=== PATIENT | male | born 1950 | race Caucasian/White ===

== ENCOUNTER 2017-08-16 17:41 | Inpatient (IN) ==
[2017-08-16] MEDS: *HR* HYDROcodone/Acet 5/325 mg TABLET PO PRN (20:37)
[2017-08-16] MEDS: amLODIPine 5 MG TABLET PO SCH (22:45)
[2017-08-17 06:13] LABS: Basophils # 0.1 K/mcL (0.0-0.2); Basophils % 0.4 %; Eosinophils # 0.3 K/mcL (0.0-0.6); Hematocrit 33.7 % (37.5-50.1); Hemoglobin 11.6 g/dL (12.9-16.9); Immature Granulocytes % 0.7 % (0-4); Lymphocytes # 1.4 K/mcL (0.6-4.6); Lymphocytes % 9.5 %; Mean Corpuscular HGB Conc 34.4 g/dL (31.6-35.5); Mean Corpuscular Hemoglobin 34.1 pg (28.0-33.3); Mean Corpuscular Volume 99.1 fL (83.0-100.0); Mean Platelet Volume 9.5 fL (9.4-12.4); Monocytes % 6.9 %; Neutrophils # 12.1 K/mcL (1.6-8.9); Platelet Count 319 K/mcL (140-400); Red Cell Distribution Width 13.5 % (11.5-14.5); Segmented Neutrophils % 80.5 %
[2017-08-17 06:27] LABS: INR 1.5; Prothrombin Time 16.7 Seconds (9.4-12.1)
[2017-08-17 06:29] LABS: Activated Partial Thrombo Time 44.1 Seconds (26.0-36.0)
[2017-08-17 06:40] LABS: BUN/Creatinine Ratio 11 (6-26); Blood Urea Nitrogen 14 mg/dL (8-23); Calcium 9.5 mg/dL (8.6-10.3); Carbon Dioxide 33 mEq/L (23-29); Chloride 104 mEq/L (98-107); Glucose 99 mg/dL (70-105); Osmolality,Calculated 301 (280-300); Potassium 3.4 mEq/L (3.5-5.1); Sodium 145 mEq/L (136-145); eGFR For African Americans > 60 (> 60); eGFR For Non-African Americans 57 (> 60)
[2017-08-17] MEDS ORDERED: Loratadine 10 MG TABLET PO SCH (09:00)
[2017-08-17] MEDS: Nicotine 21 MG PATCH.TD24 TD SCH (09:15)
[2017-08-17] MEDS: Aspirin 81 MG TAB.CHEW PO SCH (09:22)
[2017-08-17] MEDS: *HR* HYDROcodone/Acet 5/325 mg TABLET PO PRN ×2 (09:22→17:47)
[2017-08-17] MEDS: Cholecalciferol (D-3) 1,000 UNIT TABLET PO SCH (09:23)
--- NOTE | 2017-08-17 15:15 | Internal Med History&Physical ---
Date of Encounter: 08/17/17 Time of Encounter: 14:40 Assessment and Plan (1) Hx of ischemic multifocal multiple vascular territories stroke Current visit: Yes Status: Acute Continue Coumadin and aspirin. (2) CKD (chronic kidney disease) stage 3, GFR 30-59 ml/min Current visit: Yes Status: Chronic We will monitor renal indices. (3) Hypokalemia Current visit: Yes Status: Acute Will add supplemental potassium. (4) Anemia Current visit: Yes Status: Acute Will order anemia testing in a.m. Qualifiers: Anemia type: unspecified type Qualified Code(s): D64.9 - Anemia, unspecified (5) Neutrophilic leukocytosis Current visit: Yes Status: Acute Chest x-ray 08/12/2017 showed probable pneumonia. Continue Augmentin and monitor. (6) Weakness Current visit: Yes Status: Acute He will have OT and PT evaluations with ongoing intervention. (7) Hyperlipidemia Current visit: Yes Status: Chronic Continue Lipitor Qualifiers: Hyperlipidemia type: unspecified Qualified Code(s): E78.5 - Hyperlipidemia , unspecified Internal Medicine - H&P: HPI Chief complaint: Stroke Admitted From: Hospital to Hospital Transfer Plans for Post Hospital Care: Home History of present illness: Mr. Olivier is a 66 year old male who was transferred to [facility] swing bed for rehabilitation therapy following strokes. He was originally hospitalized at [facility] 07/13/2017 with CVA. 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 He was transferred from [facility] to [facility] inpatient rehabilitation for ongoing therapy needs. He was discharged from [facility] on 07/31/2017 but returned to [facility] on 08/02/2017 after having a choking episode at home with syncope. Available records state he was unconscious approximately 10 minutes and had slurred speech and confusion after regaining consciousness. He was found to have evidence of additional infarcts on brain MRI. He performed poorly on swallowing evaluation and PEG tube was placed 08/10/2017. He was stabilized and discharged to [facility] swing bed 08/16/2017 for ongoing therapy needs. He denies previous CVA. He denies seizures or other neurologic disorders. He states he has impaired memory of recent medical events but otherwise denies visual field defects or other neurologic deficits. Past Med Surg Social Fam HX - Past Medical History Medical history: COPD, CVA, hyperlipidemia, renal disease Psychiatric history: depression - Past Surgical History Additional surgical history: peg tube placement - Social History Smoking Status: Current every day smoker Alcohol use: none Drug use: none Internal Medicine - H&P: Meds 3 Allergy/AdvReac Type Severity Reaction Status Date / Time No Known Allergies Allergy Verified 07/13/17 18:12 All Systems PM: A 10-system review of systems was performed and is negative for pertinent findings except as documented above in the HPI. Review of systems: Gen.: He states his weight has been stable the past few months Cardiovascular: He denies ID hypertension heart failure angina DVT or pulmonary embolus Respiratory: He is smoked since age 9 up to 2 packs per day. He denies PFTs but available records report a diagnosis of COPD. He does not use home oxygen. He reports BELLA testing was negative in the past. GI: Denies disorders of his liver gallbladder or exocrine pancreas : He has chronic kidney disease. He denies other kidney bladder prostate disorders Neurologic: As per history of present illness Endocrine: He has anemia. He denies internal malignancies or other blood disorders. Psychiatric: He denies anxiety depression other mental health issues [place] skeletal: He had right index finger amputation 1968. He has DJD but denies gout or other bone joint or muscle disorders. - Constitutional Vitals: Temp Pulse Resp BP Pulse Ox 98.4 F 66 16 129/66 94 08/17/17 10:00 08/17/17 10:08/17/17 10:00 08/17/17 10:08/17/17 10:00 Exam: Gen.: He is well-developed well-nourished male sitting in a chair at bedside appears in no acute distress. He denies pain or dyspnea HEENT: Head is atraumatic and normal cephalic. Eyes: EOMI. There is no scleral icterus. Mouth: Mucosa is moist. Neck: Supple and nontender. There is no thyromegaly or adenopathy noted. Heart: Regular without murmurs gallops or ectopics Lungs: No wheezes or crackles are heard. Abdomen: Soft and nontender. No masses or guarding are noted. Extremities: There is no cyanosis edema or clubbing noted. Dorsalis pedis and posterior tibial pulses are trace to 1+ palpable bilaterally. He has DJD changes of his hands. He has had traumatic amputation of the right index finger. Neurologic: Mental status: He is talkative and seems to be a fair to good historian. Cranial nerves: Smile is symmetric. Forehead wrinkles bilaterally. Tongue protrudes midline. EOMI. Motor: There is no pronator drift. Cerebellar: Finger to nose is intact bilaterally. Skin: Warm and dry Internal Med - H&P Results - Labs CBC & Chem 7: 08/17/17 05:35 08/17/17 05:35 Labs: Short CBC 08/17/17 Range/Units 05:35 WBC 15.0 H (4.3-11.1) K/mcL Hgb 11.6 L (12.9-16.9) g/dL Hct 33.7 L (37.5-50.1) % Plt Count 319 (140-400) K/mcL Neutrophils # 12.1 H (1.6-8.9) K/mcL [facility] 08/17/17 05:35 Sodium 145 Potassium 3.4 L Chloride 104 Carbon Dioxide 33 H BUN 14 Creatinine 1.27 Glucose 99 Calcium 9.5
[2017-08-17] MEDS ORDERED: Loratadine 10 MG TABLET PO PRN (15:29)
[2017-08-17] MEDS: Potassium Chloride Elixir 20 MEQ/15 ML UDC PO SCH (17:47)
[2017-08-17] MEDS: *HR* Warfarin 2 MG TABLET PO SCH (17:48)
[2017-08-17] MEDS: amLODIPine 5 MG TABLET PO SCH (23:18)
[2017-08-18 04:16] LABS: Basophils # 0.1 K/mcL (0.0-0.2); Basophils % 0.3 %; Eosinophils # 0.3 K/mcL (0.0-0.6); Eosinophils % 2.1 %; Hematocrit 33.8 % (37.5-50.1); Hemoglobin 11.3 g/dL (12.9-16.9); Immature Granulocytes % 0.6 % (0-4); Lymphocytes # 1.7 K/mcL (0.6-4.6); Lymphocytes % 10.5 %; Mean Corpuscular HGB Conc 33.4 g/dL (31.6-35.5); Mean Corpuscular Hemoglobin 33.8 pg (28.0-33.3); Mean Corpuscular Volume 101.2 fL (83.0-100.0); Mean Platelet Volume 9.6 fL (9.4-12.4); Monocytes # 1.3 K/mcL (0.0-1.3); Monocytes % 8.3 %; Neutrophils # 12.5 K/mcL (1.6-8.9); Platelet Count 322 K/mcL (140-400); Red Blood Count 3.34 M/mcL (4.19-5.50); Red Cell Distribution Width 13.9 % (11.5-14.5); Segmented Neutrophils % 78.2 %
[2017-08-18 04:36] LABS: Chol/HDL Ratio 2.4 (0-4.9); Magnesium 2.2 mg/dL (1.6-2.6)
[2017-08-18 09:19] LABS: Folate 11.6 ng/mL (3.0-16.0)
[2017-08-18] MEDS: Potassium Chloride Elixir 20 MEQ/15 ML UDC PO SCH ×2 (09:24→17:21)
[2017-08-18] MEDS: Aspirin 81 MG TAB.CHEW PO SCH (09:25)
[2017-08-18] MEDS: Cholecalciferol (D-3) 1,000 UNIT TABLET PO SCH (09:25)
[2017-08-18] MEDS: Nicotine 21 MG PATCH.TD24 TD SCH (09:35)
[2017-08-18] MEDS: *HR* HYDROcodone/Acet 5/325 mg TABLET PO PRN ×2 (13:16→23:16)
--- NOTE | 2017-08-18 14:57 | Internal Med Progress Note ---
Date of Encounter: 08/18/17 Time of Encounter: 14:50 - Assessment and plan (1) Hx of ischemic multifocal multiple vascular territories stroke Current Visit: Yes Status: Acute Assessment and plan: August 18. Continue Coumadin and aspirin (2) CKD (chronic kidney disease) stage 3, GFR 30-59 ml/min Current Visit: Yes Status: Chronic Assessment and plan: August 18. Monitor renal indices (3) Hypokalemia Current Visit: Yes Status: Acute Assessment and plan: August 18. Check labs in a.m. (4) Anemia Current Visit: Yes Status: Acute Assessment and plan: August 18. Anemia testing showed iron 36, transferrin saturation 13, transferrin 196, ferritin 201, B12 518, and folate 11.6. Will give trial of ferrous sulfate with vitamin C. Qualifiers: Anemia type: unspecified type Qualified Code(s): D64.9 - Anemia, unspecified (5) Neutrophilic leukocytosis Current Visit: Yes Status: Acute Assessment and plan: August 18. WBC increased to 16.0 with 78.2% segs. Continue Augmentin and add lactobacillus. (6) Weakness Current Visit: Yes Status: Acute Assessment and plan: August 18. Continue PT and OT. (7) Hyperlipidemia Current Visit: Yes Status: Chronic Assessment and plan: August 18. Lipid profile showed total cholesterol 79, LDL 21, HDL 33, and total/ HDL ratio of 2.4. Continue Lipitor Qualifiers: Hyperlipidemia type: unspecified Qualified Code(s): E78.5 - Hyperlipidemia , unspecified - Subjective Interval history: August 18. He has no new complaints. He denies dyspnea. His only discomfort is around the G-tube site. - Constitutional Vitals: Temp Pulse Resp BP Pulse Ox 98.7 F 75 12 125/61 97 08/18/17 07:32 08/18/17 07:32 08/18/17 07:32 08/18/17 07:32 08/18/17 10:42 Exam: There is no significant oozing from the G-tube. There is no extremity edema. I reviewed his medications and lab results. Internal Medicine: Result - Labs CBC & Chem 7: 08/18/17 03:52 08/17/17 05:35 Labs: Short CBC 08/18/17 Range/Units 03:52 WBC 16.0 H (4.3-11.1) K/mcL Hgb 11.3 L (12.9-16.9) g/dL Hct 33.8 L (37.5-50.1) % Plt Count 322 (140-400) K/mcL Neutrophils # 12.5 H (1.6-8.9) K/mcL - ABG Interpretation ABG results: PT/INR, D-dimer PT 16.7 Seconds (9.4-12.1) H 08/17/17 05:35 Consult Discharge Plan - Plan Referrals: Hayes Patel MD [Primary Care Provider] - 1 week
[2017-08-18] MEDS: *HR* Warfarin 2 MG TABLET PO SCH (17:21)
[2017-08-18] MEDS: amLODIPine 5 MG TABLET PO SCH (20:22)
[2017-08-18] MEDS: Lactobacillus 1 EACH CAP.SPRINK PO SCH (20:23)
[2017-08-19 05:45] LABS: Basophils # 0.1 K/mcL (0.0-0.2); Basophils % 0.5 %; Eosinophils # 0.3 K/mcL (0.0-0.6); Eosinophils % 2.5 %; Hematocrit 29.6 % (37.5-50.1); Hemoglobin 9.8 g/dL (12.9-16.9); Immature Granulocytes % 0.5 % (0-4); Lymphocytes # 1.5 K/mcL (0.6-4.6); Lymphocytes % 14.7 %; Mean Corpuscular HGB Conc 33.1 g/dL (31.6-35.5); Mean Corpuscular Hemoglobin 33.3 pg (28.0-33.3); Mean Corpuscular Volume 100.7 fL (83.0-100.0); Mean Platelet Volume 9.8 fL (9.4-12.4); Monocytes # 0.8 K/mcL (0.0-1.3); Monocytes % 8.2 %; Neutrophils # 7.3 K/mcL (1.6-8.9); Platelet Count 266 K/mcL (140-400); Red Blood Count 2.94 M/mcL (4.19-5.50); Red Cell Distribution Width 13.7 % (11.5-14.5); Segmented Neutrophils % 73.6 %
[2017-08-19 05:52] LABS: INR 1.3; Prothrombin Time 15.1 Seconds (9.4-12.1)
[2017-08-19] MEDS: Ascorbic Acid 500 MG TABLET PO SCH (05:58)
[2017-08-19 06:03] LABS: BUN/Creatinine Ratio 18 (6-26); Blood Urea Nitrogen 22 mg/dL (8-23); Calcium 9.2 mg/dL (8.6-10.3); Carbon Dioxide 32 mEq/L (23-29); Chloride 103 mEq/L (98-107); Glucose 142 mg/dL (70-105); Osmolality,Calculated 300 (280-300); Potassium 3.4 mEq/L (3.5-5.1); Sodium 142 mEq/L (136-145); eGFR For African Americans > 60 (> 60); eGFR For Non-African Americans 59 (> 60)
[2017-08-19] MEDS: Lactobacillus 1 EACH CAP.SPRINK PO SCH ×2 (09:13→22:52)
[2017-08-19] MEDS: Potassium Chloride Elixir 20 MEQ/15 ML UDC PO SCH (09:13)
[2017-08-19] MEDS: Nicotine 21 MG PATCH.TD24 TD SCH (09:14)
[2017-08-19] MEDS: Cholecalciferol (D-3) 1,000 UNIT TABLET PO SCH (09:14)
[2017-08-19] MEDS: Aspirin 81 MG TAB.CHEW PO SCH (09:15)
[2017-08-19] MEDS: *HR* HYDROcodone/Acet 5/325 mg TABLET PO PRN ×2 (09:33→16:37)
--- NOTE | 2017-08-19 15:14 | Internal Med Progress Note ---
Date of Encounter: 08/19/17 Time of Encounter: 14:35 - Assessment and plan (1) Hx of ischemic multifocal multiple vascular territories stroke Current Visit: Yes Status: Acute Assessment and plan: August 18. Continue Coumadin and aspirin August 19. INR subtherapeutic. Will start Lovenox while increasing Coumadin dose. (2) CKD (chronic kidney disease) stage 3, GFR 30-59 ml/min Current Visit: Yes Status: Chronic Assessment and plan: August 18. Monitor renal indices (3) Hypokalemia Current Visit: Yes Status: Acute Assessment and plan: August 18. Check labs in a.m. August 19. Potassium level unchanged. Increase dose. (4) Anemia Current Visit: Yes Status: Acute Assessment and plan: August 18. Anemia testing showed iron 36, transferrin saturation 13, transferrin 196, ferritin 201, B12 518, and folate 11.6. Will give trial of ferrous sulfate with vitamin C. Qualifiers: Anemia type: unspecified type Qualified Code(s): D64.9 - Anemia, unspecified (5) Neutrophilic leukocytosis Current Visit: Yes Status: Acute Assessment and plan: August 18. WBC increased to 16.0 with 78.2% segs. Continue Augmentin and add lactobacillus. August 19. WBC normal and left shift resolved. Continue Augmentin and lactobacillus. (6) Weakness Current Visit: Yes Status: Acute Assessment and plan: August 18. Continue PT and OT. (7) Hyperlipidemia Current Visit: Yes Status: Chronic Assessment and plan: August 18. Lipid profile showed total cholesterol 79, LDL 21, HDL 33, and total/ HDL ratio of 2.4. Continue Lipitor Qualifiers: Hyperlipidemia type: unspecified Qualified Code(s): E78.5 - Hyperlipidemia , unspecified - Subjective Interval history: August 18. He has no new complaints. He denies dyspnea. His only discomfort is around the G-tube site. August 19. He has no new complaints. - Constitutional Vitals: Temp Pulse Resp BP Pulse Ox 98.0 F 70 15 114/49 96 08/19/17 08:00 08/19/17 08:00 08/19/17 09:44 08/19/17 08:00 08/19/17 09:44 Exam: resting comfortably in bed and appears in no acute distress. His affect is bright and cheerful. I reviewed his medications. I reviewed pertinent lab results with patient and family. Internal Medicine: Result - Labs CBC & Chem 7: 08/19/17 04:59 08/19/17 04:59 Labs: Short CBC 08/19/17 Range/Units 04:59 WBC 10.0 (4.3-11.1) K/mcL Hgb 9.8 L D (12.9-16.9) g/dL Hct 29.6 L (37.5-50.1) % Plt Count 266 (140-400) K/mcL Neutrophils # 7.3 (1.6-8.9) K/mcL BMP 08/19/17 04:59 Sodium 142 Potassium 3.4 L Chloride 103 Carbon Dioxide 32 H BUN 22 Creatinine 1.23 Glucose 142 H Calcium 9.2 - ABG Interpretation ABG results: PT/INR, D-dimer PT 15.1 Seconds (9.4-12.1) H 08/19/17 04:59 Consult Discharge Plan - Plan Referrals: Hayes Patel MD [Primary Care Provider] - 1 week
[2017-08-19] MEDS: Potassium Chloride Elixir 20 MEQ/15 ML UDC GTUBE SCH (16:39)
[2017-08-19] MEDS: *HR* Enoxaparin 100 MG/ML SYRINGE SQ SCH (18:15)
[2017-08-19] MEDS: *HR* Warfarin 2 MG TABLET PO SCH (18:15)
[2017-08-19] MEDS: amLODIPine 5 MG TABLET PO SCH (22:52)
[2017-08-20] MEDS: *HR* Enoxaparin 100 MG/ML SYRINGE SQ SCH ×2 (06:14→18:40)
[2017-08-20] MEDS: Ascorbic Acid 500 MG TABLET PO SCH (06:15)
[2017-08-20] MEDS: *HR* HYDROcodone/Acet 5/325 mg TABLET PO PRN (06:16)
[2017-08-20] MEDS: Potassium Chloride Elixir 20 MEQ/15 ML UDC GTUBE SCH ×2 (09:28→16:52)
[2017-08-20] MEDS: Lactobacillus 1 EACH CAP.SPRINK PO SCH ×2 (09:29→21:32)
[2017-08-20] MEDS: Cholecalciferol (D-3) 1,000 UNIT TABLET PO SCH (09:29)
[2017-08-20] MEDS: Aspirin 81 MG TAB.CHEW PO SCH (09:29)
[2017-08-20] MEDS: Nicotine 21 MG PATCH.TD24 TD SCH (09:29)
[2017-08-20] MEDS: *HR* Warfarin 2 MG TABLET PO SCH (18:38)
[2017-08-20] MEDS: amLODIPine 5 MG TABLET PO SCH (21:31)
[2017-08-21] MEDS: *HR* Enoxaparin 100 MG/ML SYRINGE SQ SCH ×2 (06:15→17:41)
[2017-08-21] MEDS: Ascorbic Acid 500 MG TABLET PO SCH (06:15)
[2017-08-21] MEDS: Cholecalciferol (D-3) 1,000 UNIT TABLET PO SCH (08:56)
[2017-08-21] MEDS: Aspirin 81 MG TAB.CHEW PO SCH (08:56)
[2017-08-21] MEDS: Nicotine 21 MG PATCH.TD24 TD SCH (08:56)
[2017-08-21] MEDS: Lactobacillus 1 EACH CAP.SPRINK PO SCH ×2 (08:56→22:44)
[2017-08-21] MEDS: Potassium Chloride Elixir 20 MEQ/15 ML UDC GTUBE SCH ×2 (08:56→17:40)
[2017-08-21] MEDS: *HR* Warfarin 2 MG TABLET PO SCH (17:40)
[2017-08-21] MEDS: *HR* HYDROcodone/Acet 5/325 mg TABLET PO PRN (22:44)
[2017-08-21] MEDS: amLODIPine 5 MG TABLET PO SCH (22:45)
[2017-08-22] MEDS: Ascorbic Acid 500 MG TABLET PO SCH (05:26)
[2017-08-22] MEDS: *HR* Enoxaparin 100 MG/ML SYRINGE SQ SCH (05:28)
[2017-08-22 06:28] LABS: Basophils # 0.1 K/mcL (0.0-0.2); Basophils % 0.6 %; Eosinophils # 0.2 K/mcL (0.0-0.6); Eosinophils % 2.6 %; Hematocrit 31.8 % (37.5-50.1); Hemoglobin 10.6 g/dL (12.9-16.9); Immature Granulocytes % 0.5 % (0-4); Lymphocytes % 24.9 %; Mean Corpuscular HGB Conc 33.3 g/dL (31.6-35.5); Mean Corpuscular Hemoglobin 33.8 pg (28.0-33.3); Mean Corpuscular Volume 101.3 fL (83.0-100.0); Mean Platelet Volume 9.8 fL (9.4-12.4); Monocytes # 0.7 K/mcL (0.0-1.3); Monocytes % 8.4 %; Platelet Count 266 K/mcL (140-400); Red Blood Count 3.14 M/mcL (4.19-5.50); Red Cell Distribution Width 13.7 % (11.5-14.5)
[2017-08-22 06:38] LABS: INR 2.4; Prothrombin Time 27.4 Seconds (9.4-12.1)
[2017-08-22 06:51] LABS: BUN/Creatinine Ratio 16 (6-26); Blood Urea Nitrogen 18 mg/dL (8-23); Calcium 9.2 mg/dL (8.6-10.3); Carbon Dioxide 30 mEq/L (23-29); Chloride 104 mEq/L (98-107); Glucose 110 mg/dL (70-105); Osmolality,Calculated 297 (280-300); Potassium 3.9 mEq/L (3.5-5.1); Sodium 142 mEq/L (136-145); eGFR For African Americans > 60 (> 60); eGFR For Non-African Americans > 60 (> 60)
[2017-08-22] MEDS: Lactobacillus 1 EACH CAP.SPRINK PO SCH (09:58)
[2017-08-22] MEDS: Aspirin 81 MG TAB.CHEW PO SCH (09:58)
[2017-08-22] MEDS: Cholecalciferol (D-3) 1,000 UNIT TABLET PO SCH (09:59)
[2017-08-22] MEDS: Potassium Chloride Elixir 20 MEQ/15 ML UDC GTUBE SCH ×2 (10:01→17:49)
[2017-08-22] MEDS: Nicotine 21 MG PATCH.TD24 TD SCH (10:14)
--- NOTE | 2017-08-22 12:00 | Internal Med Progress Note ---
Date of Encounter: 08/22/17 Time of Encounter: 11:50 - Assessment and plan (1) Hx of ischemic multifocal multiple vascular territories stroke Current Visit: Yes Status: Acute Assessment and plan: August 18. Continue Coumadin and aspirin August 19. INR subtherapeutic. Will start Lovenox while increasing Coumadin dose. August 22. INR now therapeutic. Continue Coumadin and discontinue Lovenox. (2) CKD (chronic kidney disease) stage 3, GFR 30-59 ml/min Current Visit: Yes Status: Chronic Assessment and plan: August 18. Monitor renal indices August 22. Renal indices improved. Continue present regimen. (3) Hypokalemia Current Visit: Yes Status: Acute Assessment and plan: August 18. Check labs in a.m. August 19. Potassium level unchanged. Increase dose. August 22. Potassium normal. Continue present regimen. (4) Anemia Current Visit: Yes Status: Acute Assessment and plan: August 18. Anemia testing showed iron 36, transferrin saturation 13, transferrin 196, ferritin 201, B12 518, and folate 11.6. Will give trial of ferrous sulfate with vitamin C. August 22. Hemoglobin improved to 10.6. Continue ferrous sulfate with vitamin C. Monitor labs. Qualifiers: Anemia type: unspecified type Qualified Code(s): D64.9 - Anemia, unspecified (5) Neutrophilic leukocytosis Current Visit: Yes Status: Acute Assessment and plan: August 18. WBC increased to 16.0 with 78.2% segs. Continue Augmentin and add lactobacillus. August 19. WBC normal and left shift resolved. Continue Augmentin and lactobacillus. August 22. Resolved. Will discontinue Augmentin and lactobacillus. (6) Weakness Current Visit: Yes Status: Acute Assessment and plan: August 18. Continue PT and OT. (7) Hyperlipidemia Current Visit: Yes Status: Chronic Assessment and plan: August 18. Lipid profile showed total cholesterol 79, LDL 21, HDL 33, and total/ HDL ratio of 2.4. Continue Lipitor Qualifiers: Hyperlipidemia type: unspecified Qualified Code(s): E78.5 - Hyperlipidemia , unspecified - Subjective Interval history: August 18. He has no new complaints. He denies dyspnea. His only discomfort is around the G-tube site. August 19. He has no new complaints. August 22. He had an episode of lightheadedness while ambulating to the bathroom. There was no loss of consciousness. He denies pain or dyspnea at present time. - Constitutional Vitals: Temp Pulse Resp BP Pulse Ox 97.9 F 64 16 122/74 98 08/22/17 06:31 08/22/17 09:47 08/22/17 09:49 08/22/17 09:47 08/22/17 09:49 Exam: He is sitting in a chair and appears in no acute distress. Speech is appropriate. He does not appear dyspneic. I reviewed recent vital signs. I reviewed his medications and lab results. Internal Medicine: Result - Labs CBC & Chem 7: 08/22/17 05:46 08/22/17 05:46 Labs: Short CBC 08/22/17 Range/Units 05:46 WBC 8.0 (4.3-11.1) K/mcL Hgb 10.6 L (12.9-16.9) g/dL Hct 31.8 L (37.5-50.1) % Plt Count 266 (140-400) K/mcL Neutrophils # 5.0 (1.6-8.9) K/mcL BMP 08/22/17 05:46 Sodium 142 Potassium 3.9 Chloride 104 Carbon Dioxide 30 H BUN 18 Creatinine 1.15 Glucose 110 H Calcium 9.2 - ABG Interpretation ABG results: PT/INR, D-dimer PT 27.4 Seconds (9.4-12.1) H D 08/22/17 05:46 Consult Discharge Plan - Plan Referrals: Hayes Patel MD [Primary Care Provider] - 1 week
[2017-08-22] MEDS: *HR* Warfarin 2 MG TABLET PO SCH (17:48)
[2017-08-22] MEDS: *HR* HYDROcodone/Acet 5/325 mg TABLET PO PRN (21:07)
[2017-08-23] MEDS: Ascorbic Acid 500 MG TABLET PO SCH (05:58)
[2017-08-23] MEDS: Cholecalciferol (D-3) 1,000 UNIT TABLET PO SCH (08:44)
[2017-08-23] MEDS: Potassium Chloride Elixir 20 MEQ/15 ML UDC GTUBE SCH ×2 (08:44→16:07)
[2017-08-23] MEDS: Aspirin 81 MG TAB.CHEW PO SCH (08:45)
[2017-08-23] MEDS: Nicotine 21 MG PATCH.TD24 TD SCH (08:48)
[2017-08-23] MEDS: *HR* HYDROcodone/Acet 5/325 mg TABLET PO PRN ×2 (16:17→19:50)
[2017-08-23] MEDS: *HR* Warfarin 2 MG TABLET PO SCH (17:12)
[2017-08-24] MEDS: Ascorbic Acid 500 MG TABLET PO SCH (06:05)
[2017-08-24] MEDS: Cholecalciferol (D-3) 1,000 UNIT TABLET PO SCH (09:07)
[2017-08-24] MEDS: Aspirin 81 MG TAB.CHEW PO SCH (09:07)
[2017-08-24] MEDS: Potassium Chloride Elixir 20 MEQ/15 ML UDC GTUBE SCH ×2 (09:08→16:45)
[2017-08-24] MEDS: Nicotine 21 MG PATCH.TD24 TD SCH (09:08)
[2017-08-24] MEDS: *HR* Warfarin 2 MG TABLET PO SCH (17:27)
[2017-08-25] MEDS: Ascorbic Acid 500 MG TABLET PO SCH (06:34)
[2017-08-25] MEDS: Potassium Chloride Elixir 20 MEQ/15 ML UDC GTUBE SCH ×2 (10:59→17:17)
[2017-08-25] MEDS: Aspirin 81 MG TAB.CHEW PO SCH (11:00)
[2017-08-25] MEDS: Cholecalciferol (D-3) 1,000 UNIT TABLET PO SCH (11:00)
[2017-08-25] MEDS: Nicotine 21 MG PATCH.TD24 TD SCH (11:00)
[2017-08-25] MEDS: *HR* HYDROcodone/Acet 5/325 mg TABLET PO PRN ×2 (11:03→21:21)
[2017-08-25] MEDS: *HR* Warfarin 2 MG TABLET PO SCH (17:17)
[2017-08-26] MEDS: Ascorbic Acid 500 MG TABLET PO SCH (06:01)
[2017-08-26] MEDS: *HR* HYDROcodone/Acet 5/325 mg TABLET PO PRN ×3 (09:34→22:41)
[2017-08-26] MEDS: Potassium Chloride Elixir 20 MEQ/15 ML UDC GTUBE SCH ×2 (09:34→16:40)
[2017-08-26] MEDS: Aspirin 81 MG TAB.CHEW PO SCH (09:34)
[2017-08-26] MEDS: Cholecalciferol (D-3) 1,000 UNIT TABLET PO SCH (09:34)
[2017-08-26] MEDS: Nicotine 21 MG PATCH.TD24 TD SCH (09:35)
--- NOTE | 2017-08-26 14:17 | Internal Med Progress Note ---
Date of Encounter: 08/26/17 Time of Encounter: 14:10 - Assessment and plan (1) Hx of ischemic multifocal multiple vascular territories stroke Current Visit: Yes Status: Acute Assessment and plan: August 18. Continue Coumadin and aspirin August 19. INR subtherapeutic. Will start Lovenox while increasing Coumadin dose. August 22. INR now therapeutic. Continue Coumadin and discontinue Lovenox. (2) CKD (chronic kidney disease) stage 3, GFR 30-59 ml/min Current Visit: Yes Status: Chronic Assessment and plan: August 18. Monitor renal indices August 22. Renal indices improved. Continue present regimen. August 26. Recheck labs in a.m. (3) Hypokalemia Current Visit: Yes Status: Acute Assessment and plan: August 18. Check labs in a.m. August 19. Potassium level unchanged. Increase dose. August 22. Potassium normal. Continue present regimen. August 26. Recheck labs in a.m. (4) Anemia Current Visit: Yes Status: Acute Assessment and plan: August 18. Anemia testing showed iron 36, transferrin saturation 13, transferrin 196, ferritin 201, B12 518, and folate 11.6. Will give trial of ferrous sulfate with vitamin C. August 22. Hemoglobin improved to 10.6. Continue ferrous sulfate with vitamin C. Monitor labs. August 26. Recheck labs in a.m. Qualifiers: Anemia type: unspecified type Qualified Code(s): D64.9 - Anemia, unspecified (5) Neutrophilic leukocytosis Current Visit: Yes Status: Acute Assessment and plan: August 18. WBC increased to 16.0 with 78.2% segs. Continue Augmentin and add lactobacillus. August 19. WBC normal and left shift resolved. Continue Augmentin and lactobacillus. August 22. Resolved. Will discontinue Augmentin and lactobacillus. (6) Weakness Current Visit: Yes Status: Acute Assessment and plan: August 18. Continue PT and OT. (7) Hyperlipidemia Current Visit: Yes Status: Chronic Assessment and plan: August 18. Lipid profile showed total cholesterol 79, LDL 21, HDL 33, and total/ HDL ratio of 2.4. Continue Lipitor Qualifiers: Hyperlipidemia type: unspecified Qualified Code(s): E78.5 - Hyperlipidemia , unspecified (8) Dysphagia as late effect of stroke Current Visit: Yes Status: Acute Assessment and plan: August 26. Continue ST intervention. Anticipate MBS 08/30/2017. - Subjective Interval history: August 18. He has no new complaints. He denies dyspnea. His only discomfort is around the G-tube site. August 19. He has no new complaints. August 22. He had an episode of lightheadedness while ambulating to the bathroom. There was no loss of consciousness. He denies pain or dyspnea at present time. August 26. He has no new complaints and feels better. - Constitutional Vitals: Temp Pulse Resp BP Pulse Ox 97.6 F 88 17 98/55 98 08/26/17 07:32 08/26/17 07:32 08/26/17 07:32 08/26/17 07:32 08/26/17 11:02 Exam: He is resting comfortably in bed and appears in no acute distress. His voice is less raspy. His affect is bright and cheerful. He is appropriate in conversation. I reviewed his medications and lab results. Internal Medicine: Result - Labs CBC & Chem 7: 08/22/17 05:46 08/22/17 05:46 - ABG Interpretation ABG results: PT/INR, D-dimer PT 27.4 Seconds (9.4-12.1) H D 08/22/17 05:46 - VTE Documentation of Mechanical Device: Graduated compression elastic hosiery Consult Discharge Plan - Plan Referrals: Hayes Patel MD [Primary Care Provider] - 1 week
[2017-08-26] MEDS: *HR* Warfarin 2 MG TABLET PO SCH (16:39)
[2017-08-27] MEDS: Ascorbic Acid 500 MG TABLET PO SCH (06:16)
[2017-08-27] MEDS: *HR* HYDROcodone/Acet 5/325 mg TABLET PO PRN ×2 (06:16→21:23)
[2017-08-27 06:39] LABS: Basophils # 0.1 K/mcL (0.0-0.2); Basophils % 0.6 %; Eosinophils # 0.4 K/mcL (0.0-0.6); Eosinophils % 4.4 %; Hematocrit 34.5 % (37.5-50.1); Hemoglobin 11.6 g/dL (12.9-16.9); Immature Granulocytes % 0.9 % (0-4); Lymphocytes # 2.3 K/mcL (0.6-4.6); Lymphocytes % 25.8 %; Mean Corpuscular HGB Conc 33.6 g/dL (31.6-35.5); Mean Corpuscular Volume 101.2 fL (83.0-100.0); Monocytes # 0.6 K/mcL (0.0-1.3); Monocytes % 7.1 %; Neutrophils # 5.5 K/mcL (1.6-8.9); Platelet Count 250 K/mcL (140-400); Red Blood Count 3.41 M/mcL (4.19-5.50); Red Cell Distribution Width 14.1 % (11.5-14.5); Segmented Neutrophils % 61.2 %
[2017-08-27 06:46] LABS: INR 2.7; Prothrombin Time 30.6 Seconds (9.4-12.1)
[2017-08-27 07:15] LABS: Blood Urea Nitrogen 28 mg/dL (8-23); Calcium 9.5 mg/dL (8.6-10.3); Carbon Dioxide 29 mEq/L (23-29); Chloride 102 mEq/L (98-107); Glucose 97 mg/dL (70-105); Osmolality,Calculated 295 (280-300); Potassium 4.3 mEq/L (3.5-5.1); Sodium 140 mEq/L (136-145)
[2017-08-27 07:17] LABS: BUN/Creatinine Ratio 22 (6-26); eGFR For African Americans > 60 (> 60); eGFR For Non-African Americans 56 (> 60)
[2017-08-27] MEDS: Potassium Chloride Elixir 20 MEQ/15 ML UDC GTUBE SCH ×2 (10:04→17:45)
[2017-08-27] MEDS: Cholecalciferol (D-3) 1,000 UNIT TABLET PO SCH (10:04)
[2017-08-27] MEDS: Nicotine 21 MG PATCH.TD24 TD SCH (10:04)
[2017-08-27] MEDS: Aspirin 81 MG TAB.CHEW PO SCH (10:04)
[2017-08-27] MEDS: *HR* Warfarin 2 MG TABLET PO SCH (17:45)
[2017-08-28] MEDS: Ascorbic Acid 500 MG TABLET PO SCH (06:07)
[2017-08-28] MEDS: *HR* HYDROcodone/Acet 5/325 mg TABLET PO PRN ×3 (06:07→17:44)
[2017-08-28] MEDS: Aspirin 81 MG TAB.CHEW PO SCH (10:31)
[2017-08-28] MEDS: Cholecalciferol (D-3) 1,000 UNIT TABLET PO SCH (10:31)
[2017-08-28] MEDS: Potassium Chloride Elixir 20 MEQ/15 ML UDC GTUBE SCH ×2 (10:31→17:44)
[2017-08-28] MEDS: Nicotine 21 MG PATCH.TD24 TD SCH (10:54)
[2017-08-28] MEDS: *HR* Warfarin 2 MG TABLET PO SCH (17:44)
[2017-08-29] MEDS: Ascorbic Acid 500 MG TABLET PO SCH (06:35)
[2017-08-29] MEDS: Nicotine 21 MG PATCH.TD24 TD SCH (10:12)
[2017-08-29] MEDS: Potassium Chloride Elixir 20 MEQ/15 ML UDC GTUBE SCH ×2 (10:15→17:18)
[2017-08-29] MEDS: Cholecalciferol (D-3) 1,000 UNIT TABLET PO SCH (10:16)
[2017-08-29] MEDS: *HR* HYDROcodone/Acet 5/325 mg TABLET PO PRN ×3 (10:16→22:04)
[2017-08-29] MEDS: Aspirin 81 MG TAB.CHEW PO SCH (10:16)
--- NOTE | 2017-08-29 14:13 | Internal Med Progress Note ---
Date of Encounter: 08/29/17 Time of Encounter: 14:00 - Assessment and plan (1) Hx of ischemic multifocal multiple vascular territories stroke Current Visit: Yes Status: Acute Assessment and plan: August 18. Continue Coumadin and aspirin August 19. INR subtherapeutic. Will start Lovenox while increasing Coumadin dose. August 22. INR now therapeutic. Continue Coumadin and discontinue Lovenox. August 29. Continue Coumadin. Check labs in a.m. (2) CKD (chronic kidney disease) stage 3, GFR 30-59 ml/min Current Visit: Yes Status: Chronic Assessment and plan: August 18. Monitor renal indices August 22. Renal indices improved. Continue present regimen. August 26. Recheck labs in a.m. August 29. Check labs in a.m. (3) Hypokalemia Current Visit: Yes Status: Acute Assessment and plan: August 18. Check labs in a.m. August 19. Potassium level unchanged. Increase dose. August 22. Potassium normal. Continue present regimen. August 26. Recheck labs in a.m. August 29. Improved. Continue potassium supplement. Check labs in a.m. (4) Anemia Current Visit: Yes Status: Acute Assessment and plan: August 18. Anemia testing showed iron 36, transferrin saturation 13, transferrin 196, ferritin 201, B12 518, and folate 11.6. Will give trial of ferrous sulfate with vitamin C. August 22. Hemoglobin improved to 10.6. Continue ferrous sulfate with vitamin C. Monitor labs. August 26. Recheck labs in a.m. August 29. Check labs in a.m. Qualifiers: Anemia type: unspecified type Qualified Code(s): D64.9 - Anemia, unspecified (5) Weakness Current Visit: Yes Status: Acute Assessment and plan: August 18. Continue PT and OT. (6) Hyperlipidemia Current Visit: Yes Status: Chronic Assessment and plan: August 18. Lipid profile showed total cholesterol 79, LDL 21, HDL 33, and total/ HDL ratio of 2.4. Continue Lipitor Qualifiers: Hyperlipidemia type: unspecified Qualified Code(s): E78.5 - Hyperlipidemia , unspecified (7) Dysphagia as late effect of stroke Current Visit: Yes Status: Acute Assessment and plan: August 26. Continue ST intervention. Anticipate MBS 08/30/2017. - Subjective Interval history: August 18. He has no new complaints. He denies dyspnea. His only discomfort is around the G-tube site. August 19. He has no new complaints. August 22. He had an episode of lightheadedness while ambulating to the bathroom. There was no loss of consciousness. He denies pain or dyspnea at present time. August 26. He has no new complaints and feels better. August 29. He has no new complaints. - Constitutional Vitals: Temp Pulse Resp BP Pulse Ox 97.9 F 51 18 125/63 96 08/29/17 07:25 08/29/17 07:25 08/29/17 07:25 08/29/17 07:25 08/29/17 07:25 Exam: He is resting comfortably in bed and appears in no acute distress. His affect is bright and cheerful. I reviewed his medications and lab results. Internal Medicine: Result - Labs CBC & Chem 7: 08/27/17 06:08 08/27/17 06:08 - ABG Interpretation ABG results: PT/INR, D-dimer PT 30.6 Seconds (9.4-12.1) H 08/27/17 06:08 - VTE Documentation of Mechanical Device: Graduated compression elastic hosiery Consult Discharge Plan - Plan Referrals: Hayes Patel MD [Primary Care Provider] - 1 week
[2017-08-29] MEDS: *HR* Warfarin 2 MG TABLET PO SCH (17:19)
[2017-08-30] MEDS: Ferrous Sulfate Oral Soln 300 MG/5 ML UDC PO SCH ×2 (06:04→10:19)
[2017-08-30] MEDS: Ascorbic Acid 500 MG TABLET PO SCH ×2 (06:05→10:20)
[2017-08-30 06:08] LABS: Basophils % 0.4 %; Eosinophils # 0.4 K/mcL (0.0-0.6); Eosinophils % 3.9 %; Hematocrit 33.8 % (37.5-50.1); Hemoglobin 11.4 g/dL (12.9-16.9); Immature Granulocytes % 0.7 % (0-4); Lymphocytes # 2.4 K/mcL (0.6-4.6); Lymphocytes % 26.3 %; Mean Corpuscular HGB Conc 33.7 g/dL (31.6-35.5); Mean Corpuscular Hemoglobin 34.1 pg (28.0-33.3); Mean Corpuscular Volume 101.2 fL (83.0-100.0); Mean Platelet Volume 9.7 fL (9.4-12.4); Monocytes # 0.5 K/mcL (0.0-1.3); Monocytes % 5.9 %; Neutrophils # 5.6 K/mcL (1.6-8.9); Platelet Count 224 K/mcL (140-400); Red Blood Count 3.34 M/mcL (4.19-5.50); Red Cell Distribution Width 14.1 % (11.5-14.5); Segmented Neutrophils % 62.8 %
[2017-08-30 06:19] LABS: INR 2.6; Prothrombin Time 29.1 Seconds (9.4-12.1)
[2017-08-30 06:31] LABS: BUN/Creatinine Ratio 21 (6-26); Blood Urea Nitrogen 26 mg/dL (8-23); Calcium 9.4 mg/dL (8.6-10.3); Carbon Dioxide 31 mEq/L (23-29); Chloride 102 mEq/L (98-107); Glucose 97 mg/dL (70-105); Osmolality,Calculated 295 (280-300); Potassium 4.2 mEq/L (3.5-5.1); Sodium 140 mEq/L (136-145); eGFR For African Americans > 60 (> 60); eGFR For Non-African Americans 59 (> 60)
[2017-08-30] MEDS: Nicotine 21 MG PATCH.TD24 TD SCH (10:15)
[2017-08-30] MEDS: Potassium Chloride Elixir 20 MEQ/15 ML UDC GTUBE SCH ×2 (10:18→18:24)
[2017-08-30] MEDS: Cholecalciferol (D-3) 1,000 UNIT TABLET PO SCH (10:19)
[2017-08-30] MEDS: Aspirin 81 MG TAB.CHEW PO SCH (10:19)
[2017-08-30] MEDS: *HR* HYDROcodone/Acet 5/325 mg TABLET PO PRN ×2 (10:20→18:27)
[2017-08-30] MEDS: *HR* Warfarin 2 MG TABLET PO SCH (18:24)
[2017-08-31] MEDS: Ferrous Sulfate Oral Soln 300 MG/5 ML UDC PO SCH (06:42)
[2017-08-31] MEDS: Ascorbic Acid 500 MG TABLET PO SCH (06:42)
[2017-08-31] MEDS: Potassium Chloride Elixir 20 MEQ/15 ML UDC GTUBE SCH ×2 (09:56→18:12)
[2017-08-31] MEDS: *HR* HYDROcodone/Acet 5/325 mg TABLET PO PRN ×2 (09:57→18:12)
[2017-08-31] MEDS: Aspirin 81 MG TAB.CHEW PO SCH (09:57)
[2017-08-31] MEDS: Cholecalciferol (D-3) 1,000 UNIT TABLET PO SCH (09:57)
[2017-08-31] MEDS: Nicotine 21 MG PATCH.TD24 TD SCH (09:57)
--- NOTE | 2017-08-31 11:26 | Internal Med Progress Note ---
Date of Encounter: 08/31/17 Time of Encounter: 11:20 - Assessment and plan (1) Hx of ischemic multifocal multiple vascular territories stroke Current Visit: Yes Status: Acute Assessment and plan: August 18. Continue Coumadin and aspirin August 19. INR subtherapeutic. Will start Lovenox while increasing Coumadin dose. August 22. INR now therapeutic. Continue Coumadin and discontinue Lovenox. August 29. Continue Coumadin. Check labs in a.m. August 31. Coumadin dose appropriate. MBS showed improvement and he is now on pureed diet with nectar thick liquids. Anticipate discharge home tomorrow. (2) CKD (chronic kidney disease) stage 3, GFR 30-59 ml/min Current Visit: Yes Status: Chronic Assessment and plan: August 18. Monitor renal indices August 22. Renal indices improved. Continue present regimen. August 26. Recheck labs in a.m. August 29. Check labs in a.m. August 31. Creatinine stable at 1.22. (3) Hypokalemia Current Visit: Yes Status: Acute Assessment and plan: August 18. Check labs in a.m. August 19. Potassium level unchanged. Increase dose. August 22. Potassium normal. Continue present regimen. August 26. Recheck labs in a.m. August 29. Improved. Continue potassium supplement. Check labs in a.m. August 31. Stable potassium at 4.2. Continue present regimen. (4) Anemia Current Visit: Yes Status: Acute Assessment and plan: August 18. Anemia testing showed iron 36, transferrin saturation 13, transferrin 196, ferritin 201, B12 518, and folate 11.6. Will give trial of ferrous sulfate with vitamin C. August 22. Hemoglobin improved to 10.6. Continue ferrous sulfate with vitamin C. Monitor labs. August 26. Recheck labs in a.m. August 29. Check labs in a.m. August 31. Hemoglobin stable at 11.4. Qualifiers: Anemia type: unspecified type Qualified Code(s): D64.9 - Anemia, unspecified (5) Weakness Current Visit: Yes Status: Acute Assessment and plan: August 18. Continue PT and OT. (6) Hyperlipidemia Current Visit: Yes Status: Chronic Assessment and plan: August 18. Lipid profile showed total cholesterol 79, LDL 21, HDL 33, and total/ HDL ratio of 2.4. Continue Lipitor Qualifiers: Hyperlipidemia type: unspecified Qualified Code(s): E78.5 - Hyperlipidemia , unspecified (7) Dysphagia as late effect of stroke Current Visit: Yes Status: Acute Assessment and plan: August 26. Continue ST intervention. Anticipate MBS 08/30/2017. August 31. MBS results as above. Continue present diet. - Subjective Interval history: August 18. He has no new complaints. He denies dyspnea. His only discomfort is around the G-tube site. August 19. He has no new complaints. August 22. He had an episode of lightheadedness while ambulating to the bathroom. There was no loss of consciousness. He denies pain or dyspnea at present time. August 26. He has no new complaints and feels better. August 29. He has no new complaints. August 31. He has no new complaints. He is tolerating oral diet well. - Constitutional Vitals: Temp Pulse Resp BP Pulse Ox 97.3 F L 84 16 148/53 97 08/31/17 07:15 08/31/17 07:15 08/31/17 07:15 08/31/17 07:15 08/31/17 07:15 Exam: He is resting comfortably in bed and appears in no acute distress. His affect is bright and cheerful. I reviewed his medications and lab results. Internal Medicine: Result - Labs CBC & Chem 7: 08/30/17 05:55 08/30/17 05:55 - ABG Interpretation ABG results: PT/INR, D-dimer PT 29.1 Seconds (9.4-12.1) H 08/30/17 05:55 - VTE Documentation of Mechanical Device: Graduated compression elastic hosiery Consult Discharge Plan - Plan Referrals: Hayes Patel MD [Primary Care Provider] - 1 week
[2017-08-31] MEDS: *HR* Warfarin 2 MG TABLET PO SCH (18:12)
[2017-09-01] MEDS: Ferrous Sulfate Oral Soln 300 MG/5 ML UDC PO SCH (06:08)
[2017-09-01] MEDS: Potassium Chloride Elixir 20 MEQ/15 ML UDC GTUBE SCH (06:08)
[2017-09-01] MEDS: Ascorbic Acid 500 MG TABLET PO SCH (06:08)
[2017-09-01] MEDS: *HR* HYDROcodone/Acet 5/325 mg TABLET PO PRN (06:08)
[2017-09-01 08:35] VITALS: BP 114/65
[2017-09-01] MEDS: Aspirin 81 MG TAB.CHEW PO SCH (08:37)
[2017-09-01] MEDS: Cholecalciferol (D-3) 1,000 UNIT TABLET PO SCH (08:37)
--- NOTE | 2017-09-01 11:43 | Discharge Summary ---
Date of Encounter: 09/01/17 Time of Encounter: 11:30 - Discharge Diagnosis (1) Hx of ischemic multifocal multiple vascular territories stroke Priority: Primary Status: Acute (2) CKD (chronic kidney disease) stage 3, GFR 30-59 ml/min Priority: Secondary Status: Chronic (3) Hypokalemia Priority: Secondary Status: Acute (4) Anemia Priority: Secondary Status: Acute Qualifiers: Anemia type: unspecified type Qualified Code(s): D64.9 - Anemia, unspecified (5) Weakness Priority: Secondary Status: Acute (6) Hyperlipidemia Priority: Secondary Status: Chronic Qualifiers: Hyperlipidemia type: unspecified Qualified Code(s): E78.5 - Hyperlipidemia , unspecified (7) Dysphagia as late effect of stroke Priority: Secondary Status: Acute Hospital course: Mr. Olivier is a 66 year old male who was transferred to [facility] swing bed for rehabilitation therapy following strokes. He was originally hospitalized at [facility] 07/13/2017 with CVA. 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 He was transferred from [facility] to [facility] inpatient rehabilitation for ongoing therapy needs. He was discharged from [facility] on 07/31/2017 but returned to [facility] on 08/02/2017 after having a choking episode at home with syncope. Available records state he was unconscious approximately 10 minutes and had slurred speech and confusion after regaining consciousness. He was found to have evidence of additional infarcts on brain MRI. He performed poorly on swallowing evaluation and PEG tube was placed 08/10/2017. He was stabilized and discharged to [facility] swing bed 08/16/2017 for ongoing therapy needs. Initial orders were written by the discharging physicians at [facility]. I saw him on August 17 and performed the swing bed history and physical. He had physical therapy and occupational therapy evaluations with ongoing intervention. He was maintained on Coumadin and aspirin for history of CVA. He made satisfactory progress. Repeat MBS was performed and showed safety with pureed diet and nectar thick liquids. He will continue this at home. Anemia testing showed iron 36, transferrin saturation 13%, transferrin 196, ferritin 201, B12 518, and folate 11.6. He was started on ferrous sulfate with vitamin C and this will be continued at home. Supplemental potassium was given and hypokalemia resolved. He will continue supplemental potassium at discharge and his PCP can monitor labs. Estimated GFR was 59 on day of discharge consistent with chronic kidney disease stage III. On September 01 arrangements were complete for him to be discharged home. He will follow with his PCP Dr. Patel within 1 week. - Time Spent with Patient Total time spent providing and/or coordinating discharge services: - Discharge Medications Prescriptions: Ascorbic Acid [Vitamin C] 500 mg PO DAILY #30 tablet Ferrous Sulfate 325 mg PO DAILY #30 tablet HYDROcodone/Acet 5/325 mg [Mason 5-325 mg] 1 tab PO Q6H PRN 7 Days #28 tablet PRN Reason: Pain Metoprolol XL (24 HR) Succ [Toprol XL] 25 mg PO DAILY #30 tab.er.24h Potassium Chloride 20 meq PO BIDWM #120 tab.er.prt Home Medications: Ascorbic Acid [Vitamin C] 500 mg PO DAILY #30 tablet 09/01/17 [Rx] Aspirin 81 mg PO DAILY tab.chew 09/01/17 [Rx] Atorvastatin [Lipitor] 40 mg PO HS tablet 09/01/17 [Rx] Cholecalciferol (D-3) [Vitamin D] 1,000 unit PO DAILY tablet 09/01/17 [Rx] Ferrous Sulfate 325 mg PO DAILY #30 tablet 09/01/17 [Rx] HYDROcodone/Acet 5/325 mg [Mason 5-325 mg] 1 tab PO Q6H PRN 7 Days #28 tablet [Rx] Metoprolol XL (24 HR) Succ [Toprol XL] 25 mg PO DAILY #30 tab.er.24h 09/01/17 [ Rx] Potassium Chloride 20 meq PO BIDWM #120 tab.er.prt 09/01/17 [Rx] Sennosides [Senna] 8.8 mg GTUBE HS udc 09/01/17 [Rx] Sertraline [Zoloft] 100 mg PO DAILY tablet 09/01/17 [Rx] Tamsulosin [Flomax] 0.4 mg PO Q24H capsule 09/01/17 [Rx] Warfarin [Coumadin] 6 mg PO DAILY@1800 tablet 09/01/17 [Rx] Allergies/Adverse Reactions: 3 Allergy/AdvReac Type Severity Reaction Status Date / Time No Known Allergies Allergy Verified 07/13/17 18:12 Date of admission: 08/16/17 18:56 Primary care physician: Hayes Patel MD Consults: 08/16/17 20:40 Consult to Occupational Therapy [CONS] Routine Comment: eval, plan and treat Reason for Consult: eval, plan and treat Does patient have active BEDREST order?: No Is patient medically & hemodynamically stable?: Yes Patient assessed for mobility or mobilized this visit?: No Consult to Physical Therapy [CONS] Routine Comment: eval, plan and treat Reason for Consult: eval, plan and treat Does patient have active BEDREST order?: No Is patient medically & hemodynamically stable?: Yes Patient assessed for mobility or mobilized this visit?: No Consult to Biomedical Equipment Tech [CONS] Routine Reason for SW Consult: D/C planning 08/17/17 09:13 Consult to Speech Therapy [CONS] Routine Comment: Evaluate, develop and implement POC Reason for Consult: s/p CVA, peg tube placement, difficulty swallowing Call Completed: Yes - Constitutional Vitals: Temp Pulse Resp BP Pulse Ox 97.3 F L 58 18 114/65 97 09/01/17 08:00 09/01/17 08:00 08/31/17 18:00 09/01/17 08:00 09/01/17 08:00 - Patient Status Disposition: Home, Self-Care Overall status at discharge: patient is progressing back to baseline - Discharge Instructions Follow Up With: Hayes Patel MD [Primary Care Provider] - 1 week - Diet and Activity Activity: as per physical therapy Diet: other (Pureed diet with nectar thick liquids.) - VTE Documentation of Mechanical Device: Graduated compression elastic hosiery
[2017-09-01] MEDS: Nicotine 21 MG PATCH.TD24 TD SCH (11:58)
== END 2017-09-01 13:05 | disposition home or self-care (01) | DRG 57 ==
LOC: INPPIK 18:56
PROVIDERS: ADMIT Internal Medicine; ATTEND Internal Medicine

== ENCOUNTER 2020-08-12 17:37 | Inpatient (IN) ==
[2020-08-12] MEDS: levETIRAcetam 250 MG TABLET PO SCH (21:28)
[2020-08-12] MEDS: *HR* HYDROcodone/Acet 10/325 mg TABLET PO PRN (21:31)
[2020-08-13 07:10] LABS: Basophils % 0.3 %; Eosinophils # 0.1 K/mcL (0.0-0.6); Eosinophils % 1.9 %; Immature Granulocytes % 1.1 % (0-4); Lymphocytes % 14.8 %; Mean Corpuscular HGB Conc 34.4 g/dL (31.6-35.5); Mean Corpuscular Hemoglobin 34.7 pg (28.0-33.3); Mean Corpuscular Volume 100.9 fL (83.0-100.0); Mean Platelet Volume 9.3 fL (9.4-12.4); Monocytes # 0.7 K/mcL (0.0-1.3); Monocytes % 10.5 %; Neutrophils # 4.6 K/mcL (1.6-8.9); Platelet Count 193 K/mcL (140-400); Red Blood Count 3.17 M/mcL (4.19-5.50); Red Cell Distribution Width 14.2 % (11.5-14.5); Segmented Neutrophils % 71.4 %; White Blood Count 6.4 K/mcL (4.3-11.1)
[2020-08-13 07:20] LABS: INR 1.1; Prothrombin Time 12.6 Seconds (9.4-12.1)
[2020-08-13 07:31] LABS: BUN/Creatinine Ratio 17 (6-26); Blood Urea Nitrogen 22 mg/dL (8-23); Calcium 8.9 mg/dL (8.6-10.3); Carbon Dioxide 28 mEq/L (23-29); Chloride 105 mEq/L (98-107); Glucose 131 mg/dL (70-105); Osmolality,Calculated 299 (280-300); Potassium 3.8 mEq/L (3.5-5.1); Sodium 142 mEq/L (136-145); eGFR For African Americans > 60 (> 60); eGFR For Non-African Americans 54 (> 60)
[2020-08-13] MEDS: levETIRAcetam 250 MG TABLET PO SCH ×2 (08:38→20:10)
[2020-08-13] MEDS: Aspirin 325 MG TABLET PO SCH (08:39)
[2020-08-13] MEDS: Metoprolol XL (24 HR) Succ 25 MG TAB.ER.24H PO SCH (08:39)
[2020-08-13] MEDS: Multivit/Ca/Min/Fe/FA 1 TAB TABLET PO SCH (08:39)
[2020-08-13] MEDS: *HR* HYDROcodone/Acet 10/325 mg TABLET PO PRN ×3 (08:43→20:09)
[2020-08-13] MEDS: Nicotine 14 MG PATCH.TD24 TD SCH (15:33)
[2020-08-13] MEDS: *HR* Heparin 5,000 UNIT/ML VIAL SQ SCH (20:10)
[2020-08-14] MEDS: *HR* HYDROcodone/Acet 10/325 mg TABLET PO PRN ×5 (03:07→21:53)
[2020-08-14] MEDS: *HR* Heparin 5,000 UNIT/ML VIAL SQ SCH ×3 (05:47→21:50)
[2020-08-14] MEDS: Metoprolol XL (24 HR) Succ 25 MG TAB.ER.24H PO SCH (07:31)
[2020-08-14] MEDS: Multivit/Ca/Min/Fe/FA 1 TAB TABLET PO SCH (07:32)
[2020-08-14] MEDS: Aspirin 325 MG TABLET PO SCH (07:32)
[2020-08-14] MEDS: levETIRAcetam 250 MG TABLET PO SCH ×2 (07:32→21:50)
[2020-08-14] MEDS: Nicotine 14 MG PATCH.TD24 TD SCH (07:36)
[2020-08-15] MEDS: *HR* HYDROcodone/Acet 10/325 mg TABLET PO PRN ×3 (02:57→18:55)
[2020-08-15] MEDS: *HR* Heparin 5,000 UNIT/ML VIAL SQ SCH ×3 (06:16→21:37)
[2020-08-15] MEDS: Nicotine 14 MG PATCH.TD24 TD SCH (08:30)
[2020-08-15] MEDS: Aspirin 325 MG TABLET PO SCH (08:32)
[2020-08-15] MEDS: levETIRAcetam 250 MG TABLET PO SCH ×2 (08:32→21:36)
[2020-08-15] MEDS: Multivit/Ca/Min/Fe/FA 1 TAB TABLET PO SCH (08:32)
[2020-08-15] MEDS: Metoprolol XL (24 HR) Succ 25 MG TAB.ER.24H PO SCH (08:32)
[2020-08-15] MEDS: Acetaminophen 325 MG TABLET PO PRN (20:20)
[2020-08-16] MEDS: *HR* HYDROcodone/Acet 10/325 mg TABLET PO PRN ×3 (03:50→20:15)
[2020-08-16] MEDS: *HR* Heparin 5,000 UNIT/ML VIAL SQ SCH ×3 (06:26→20:16)
[2020-08-16] MEDS: Nicotine 14 MG PATCH.TD24 TD SCH (08:20)
[2020-08-16] MEDS: levETIRAcetam 250 MG TABLET PO SCH ×2 (08:20→20:15)
[2020-08-16] MEDS: Metoprolol XL (24 HR) Succ 25 MG TAB.ER.24H PO SCH (08:21)
[2020-08-16] MEDS: Multivit/Ca/Min/Fe/FA 1 TAB TABLET PO SCH (08:21)
[2020-08-16] MEDS: Aspirin 325 MG TABLET PO SCH (08:21)
[2020-08-16] MEDS: Acetaminophen 325 MG TABLET PO PRN (16:53)
[2020-08-17] MEDS: *HR* HYDROcodone/Acet 10/325 mg TABLET PO PRN ×3 (02:14→19:56)
[2020-08-17] MEDS: *HR* Heparin 5,000 UNIT/ML VIAL SQ SCH ×3 (06:30→21:00)
[2020-08-17 06:34] LABS: Basophils % 0.5 %; Eosinophils # 0.1 K/mcL (0.0-0.6); Eosinophils % 2.3 %; Hematocrit 33.7 % (37.5-50.1); Hemoglobin 11.3 g/dL (12.9-16.9); Immature Granulocytes % 0.9 % (0-4); Lymphocytes # 1.2 K/mcL (0.6-4.6); Lymphocytes % 21.6 %; Mean Corpuscular HGB Conc 33.5 g/dL (31.6-35.5); Mean Corpuscular Hemoglobin 34.2 pg (28.0-33.3); Mean Corpuscular Volume 102.1 fL (83.0-100.0); Mean Platelet Volume 8.8 fL (9.4-12.4); Monocytes # 0.5 K/mcL (0.0-1.3); Monocytes % 8.7 %; Neutrophils # 3.8 K/mcL (1.6-8.9); Platelet Count 216 K/mcL (140-400); Red Cell Distribution Width 14.6 % (11.5-14.5); White Blood Count 5.7 K/mcL (4.3-11.1)
[2020-08-17 06:56] LABS: BUN/Creatinine Ratio 13 (6-26); Blood Urea Nitrogen 18 mg/dL (8-23); Calcium 9.1 mg/dL (8.6-10.3); Carbon Dioxide 27 mEq/L (23-29); Chloride 105 mEq/L (98-107); Glucose 120 mg/dL (70-105); Osmolality,Calculated 295 (280-300); Sodium 141 mEq/L (136-145); eGFR For African Americans > 60 (> 60); eGFR For Non-African Americans 52 (> 60)
[2020-08-17] MEDS: levETIRAcetam 250 MG TABLET PO SCH ×2 (08:10→21:00)
[2020-08-17] MEDS: Metoprolol XL (24 HR) Succ 25 MG TAB.ER.24H PO SCH (08:10)
[2020-08-17] MEDS: Multivit/Ca/Min/Fe/FA 1 TAB TABLET PO SCH (08:10)
[2020-08-17] MEDS: Aspirin 325 MG TABLET PO SCH (08:11)
[2020-08-17] MEDS: Nicotine 14 MG PATCH.TD24 TD SCH (08:11)
[2020-08-18] MEDS: *HR* Heparin 5,000 UNIT/ML VIAL SQ SCH ×3 (05:38→20:39)
[2020-08-18] MEDS: levETIRAcetam 250 MG TABLET PO SCH ×2 (09:10→20:39)
[2020-08-18] MEDS: Multivit/Ca/Min/Fe/FA 1 TAB TABLET PO SCH (09:11)
[2020-08-18] MEDS: Aspirin 325 MG TABLET PO SCH (09:14)
[2020-08-18] MEDS: Nicotine 14 MG PATCH.TD24 TD SCH (09:15)
[2020-08-18] MEDS: *HR* HYDROcodone/Acet 10/325 mg TABLET PO PRN ×3 (09:31→23:35)
[2020-08-18] MEDS: Metoprolol XL (24 HR) Succ 50 MG TAB.ER.24H PO SCH (10:02)
[2020-08-18] MEDS ORDERED: Metoprolol XL (24 HR) Succ 25 MG TAB.ER.24H PO ONE (10:07)
[2020-08-19] MEDS: *HR* HYDROcodone/Acet 10/325 mg TABLET PO PRN ×3 (04:00→21:29)
[2020-08-19] MEDS: *HR* Heparin 5,000 UNIT/ML VIAL SQ SCH ×3 (05:05→21:29)
[2020-08-19] MEDS: levETIRAcetam 250 MG TABLET PO SCH ×2 (08:46→21:28)
[2020-08-19] MEDS: Metoprolol XL (24 HR) Succ 50 MG TAB.ER.24H PO SCH (08:47)
[2020-08-19] MEDS: Aspirin 325 MG TABLET PO SCH (08:48)
[2020-08-19] MEDS: Nicotine 14 MG PATCH.TD24 TD SCH (08:48)
[2020-08-19] MEDS: Multivit/Ca/Min/Fe/FA 1 TAB TABLET PO SCH (08:48)
[2020-08-20] MEDS: *HR* Heparin 5,000 UNIT/ML VIAL SQ SCH ×2 (05:35→16:32)
[2020-08-20] MEDS: levETIRAcetam 250 MG TABLET PO SCH ×2 (08:40→20:55)
[2020-08-20] MEDS: Multivit/Ca/Min/Fe/FA 1 TAB TABLET PO SCH (08:40)
[2020-08-20] MEDS: Aspirin 325 MG TABLET PO SCH (08:40)
[2020-08-20] MEDS: Metoprolol XL (24 HR) Succ 50 MG TAB.ER.24H PO SCH (08:41)
[2020-08-20] MEDS: *HR* HYDROcodone/Acet 10/325 mg TABLET PO PRN ×2 (08:41→16:35)
[2020-08-20] MEDS: Nicotine 14 MG PATCH.TD24 TD SCH (08:41)
[2020-08-20] MEDS ORDERED: Naloxone 0.4 MG/ML INJ IVP PRN (20:32)
[2020-08-20] MEDS ORDERED: *HR* OxyCODONE Immed Rel 5 MG TABLET PO PRN (20:32)
[2020-08-21] MEDS: *HR* HYDROcodone/Acet 10/325 mg TABLET PO PRN ×5 (00:37→21:19)
[2020-08-21] MEDS: *HR* Heparin 5,000 UNIT/ML VIAL SQ SCH ×4 (00:38→21:19)
[2020-08-21] MEDS: Multivit/Ca/Min/Fe/FA 1 TAB TABLET PO SCH (08:23)
[2020-08-21] MEDS: levETIRAcetam 250 MG TABLET PO SCH ×2 (08:25→21:18)
[2020-08-21] MEDS: Nicotine 14 MG PATCH.TD24 TD SCH (08:26)
[2020-08-21] MEDS: Metoprolol XL (24 HR) Succ 50 MG TAB.ER.24H PO SCH (08:26)
[2020-08-21] MEDS: Aspirin 325 MG TABLET PO SCH (08:26)
[2020-08-22] MEDS: *HR* Heparin 5,000 UNIT/ML VIAL SQ SCH ×3 (05:40→21:13)
[2020-08-22] MEDS: *HR* HYDROcodone/Acet 10/325 mg TABLET PO PRN ×3 (06:13→21:12)
[2020-08-22] MEDS: levETIRAcetam 250 MG TABLET PO SCH ×2 (08:39→21:12)
[2020-08-22] MEDS: Metoprolol XL (24 HR) Succ 50 MG TAB.ER.24H PO SCH (08:40)
[2020-08-22] MEDS: Aspirin 325 MG TABLET PO SCH (08:40)
[2020-08-22] MEDS: Multivit/Ca/Min/Fe/FA 1 TAB TABLET PO SCH (08:40)
[2020-08-22] MEDS: Nicotine 14 MG PATCH.TD24 TD SCH (08:41)
[2020-08-23] MEDS: *HR* Heparin 5,000 UNIT/ML VIAL SQ SCH ×3 (06:42→21:01)
[2020-08-23] MEDS: Multivit/Ca/Min/Fe/FA 1 TAB TABLET PO SCH (07:51)
[2020-08-23] MEDS: Metoprolol XL (24 HR) Succ 50 MG TAB.ER.24H PO SCH (07:52)
[2020-08-23] MEDS: levETIRAcetam 250 MG TABLET PO SCH ×2 (07:52→21:01)
[2020-08-23] MEDS: Aspirin 325 MG TABLET PO SCH (07:52)
[2020-08-23] MEDS: Nicotine 14 MG PATCH.TD24 TD SCH (07:53)
[2020-08-23] MEDS: *HR* HYDROcodone/Acet 10/325 mg TABLET PO PRN ×2 (08:04→21:01)
[2020-08-24] MEDS: *HR* Heparin 5,000 UNIT/ML VIAL SQ SCH (05:20)
[2020-08-24] MEDS: *HR* HYDROcodone/Acet 10/325 mg TABLET PO PRN ×2 (05:21→16:45)
[2020-08-24] MEDS: Nicotine 14 MG PATCH.TD24 TD SCH (08:10)
[2020-08-24] MEDS: Metoprolol XL (24 HR) Succ 50 MG TAB.ER.24H PO SCH (08:11)
[2020-08-24] MEDS: Multivit/Ca/Min/Fe/FA 1 TAB TABLET PO SCH (08:11)
[2020-08-24] MEDS: Aspirin 325 MG TABLET PO SCH (08:11)
[2020-08-24] MEDS: levETIRAcetam 250 MG TABLET PO SCH ×2 (08:11→20:05)
[2020-08-25] MEDS: *HR* HYDROcodone/Acet 10/325 mg TABLET PO PRN ×4 (02:31→21:09)
[2020-08-25] MEDS: Multivit/Ca/Min/Fe/FA 1 TAB TABLET PO SCH (09:02)
[2020-08-25] MEDS: levETIRAcetam 250 MG TABLET PO SCH ×2 (09:02→21:06)
[2020-08-25] MEDS: Aspirin 325 MG TABLET PO SCH (09:03)
[2020-08-25] MEDS: Metoprolol XL (24 HR) Succ 50 MG TAB.ER.24H PO SCH (09:03)
[2020-08-25] MEDS: Nicotine 14 MG PATCH.TD24 TD SCH (09:03)
[2020-08-26] MEDS: levETIRAcetam 250 MG TABLET PO SCH ×2 (08:46→21:18)
[2020-08-26] MEDS: Multivit/Ca/Min/Fe/FA 1 TAB TABLET PO SCH (08:47)
[2020-08-26] MEDS: *HR* HYDROcodone/Acet 10/325 mg TABLET PO PRN ×3 (08:47→21:18)
[2020-08-26] MEDS: Metoprolol XL (24 HR) Succ 50 MG TAB.ER.24H PO SCH (08:47)
[2020-08-26] MEDS: Aspirin 325 MG TABLET PO SCH (08:47)
[2020-08-26] MEDS: Nicotine 14 MG PATCH.TD24 TD SCH (08:48)
[2020-08-27] MEDS: *HR* HYDROcodone/Acet 10/325 mg TABLET PO PRN ×3 (02:07→21:39)
[2020-08-27] MEDS: Aspirin 325 MG TABLET PO SCH (07:38)
[2020-08-27] MEDS: levETIRAcetam 250 MG TABLET PO SCH ×2 (07:39→21:39)
[2020-08-27] MEDS: Metoprolol XL (24 HR) Succ 50 MG TAB.ER.24H PO SCH (07:40)
[2020-08-27] MEDS: Nicotine 14 MG PATCH.TD24 TD SCH (07:40)
[2020-08-27] MEDS: Multivit/Ca/Min/Fe/FA 1 TAB TABLET PO SCH (07:40)
[2020-08-28] MEDS: *HR* HYDROcodone/Acet 10/325 mg TABLET PO PRN ×2 (04:23→10:06)
[2020-08-28 07:06] LABS: Basophils % 0.5 %; Eosinophils # 0.1 K/mcL (0.0-0.6); Eosinophils % 1.9 %; Hematocrit 34.5 % (37.5-50.1); Hemoglobin 11.7 g/dL (12.9-16.9); Immature Granulocytes % 0.5 % (0-4); Lymphocytes # 1.2 K/mcL (0.6-4.6); Lymphocytes % 21.2 %; Mean Corpuscular HGB Conc 33.9 g/dL (31.6-35.5); Mean Corpuscular Hemoglobin 34.6 pg (28.0-33.3); Mean Corpuscular Volume 102.1 fL (83.0-100.0); Mean Platelet Volume 9.5 fL (9.4-12.4); Monocytes # 0.5 K/mcL (0.0-1.3); Monocytes % 7.8 %; Platelet Count 130 K/mcL (140-400); Red Blood Count 3.38 M/mcL (4.19-5.50); Red Cell Distribution Width 14.4 % (11.5-14.5); Segmented Neutrophils % 68.1 %; White Blood Count 5.9 K/mcL (4.3-11.1)
[2020-08-28 07:30] LABS: Potassium 3.8 mEq/L (3.5-5.1)
[2020-08-28] MEDS: Aspirin 325 MG TABLET PO SCH (08:16)
[2020-08-28] MEDS: levETIRAcetam 250 MG TABLET PO SCH ×2 (08:17→20:44)
[2020-08-28] MEDS: Metoprolol XL (24 HR) Succ 50 MG TAB.ER.24H PO SCH (08:17)
[2020-08-28] MEDS: Multivit/Ca/Min/Fe/FA 1 TAB TABLET PO SCH (08:18)
[2020-08-28] MEDS: Nicotine 14 MG PATCH.TD24 TD SCH (08:18)
[2020-08-29] MEDS: Aspirin 325 MG TABLET PO SCH (09:05)
[2020-08-29] MEDS: levETIRAcetam 250 MG TABLET PO SCH ×2 (09:05→20:17)
[2020-08-29] MEDS: Nicotine 14 MG PATCH.TD24 TD SCH (09:05)
[2020-08-29] MEDS: Multivit/Ca/Min/Fe/FA 1 TAB TABLET PO SCH (09:06)
[2020-08-29] MEDS: *HR* HYDROcodone/Acet 10/325 mg TABLET PO PRN ×2 (09:06→14:29)
[2020-08-29] MEDS: Metoprolol XL (24 HR) Succ 50 MG TAB.ER.24H PO SCH (09:07)
[2020-08-30] MEDS: *HR* HYDROcodone/Acet 10/325 mg TABLET PO PRN (01:55)
[2020-08-30] MEDS: levETIRAcetam 250 MG TABLET PO SCH ×2 (09:07→20:57)
[2020-08-30] MEDS: Multivit/Ca/Min/Fe/FA 1 TAB TABLET PO SCH (09:08)
[2020-08-30] MEDS: Aspirin 325 MG TABLET PO SCH (09:08)
[2020-08-30] MEDS: Nicotine 14 MG PATCH.TD24 TD SCH (09:08)
[2020-08-30] MEDS: Metoprolol XL (24 HR) Succ 50 MG TAB.ER.24H PO SCH (09:08)
[2020-08-30] MEDS: Acetaminophen 325 MG TABLET PO PRN (15:59)
[2020-08-31] MEDS: Acetaminophen 325 MG TABLET PO PRN (03:17)
[2020-08-31 07:21] VITALS: BP 154/70
[2020-08-31] MEDS: Aspirin 325 MG TABLET PO SCH (08:43)
[2020-08-31] MEDS: Nicotine 14 MG PATCH.TD24 TD SCH (08:43)
[2020-08-31] MEDS: Metoprolol XL (24 HR) Succ 50 MG TAB.ER.24H PO SCH (08:44)
[2020-08-31] MEDS: *HR* HYDROcodone/Acet 10/325 mg TABLET PO PRN (08:44)
[2020-08-31] MEDS: levETIRAcetam 250 MG TABLET PO SCH (08:44)
[2020-08-31] MEDS: Multivit/Ca/Min/Fe/FA 1 TAB TABLET PO SCH (08:44)
== END 2020-08-31 13:45 | disposition home or self-care (01) | DRG 560 ==
LOC: INPPIK 19:50
PROVIDERS: ADMIT Family Medicine; ATTEND Family Medicine